=== PATIENT | male | born 1970 | race Caucasian/White ===

== ENCOUNTER 2021-03-09 09:17 | Emergency (ER) | payer OTHER ==
[~2021-03-09] VITALS: Ht 177.8 cm; Wt 63.5 kg
[2021-03-09 09:24] VITALS: BP 175/100
[2021-03-09] MEDS ORDERED: GABAPENTIN 300 MG CAP PO STA (09:33)
[2021-03-09] MEDS ORDERED: HYDROcodone/APAP 10/325 MG 1 TAB TAB PO STA (09:33)
[2021-03-09] MEDS ORDERED: ACYC-278 PO (09:35)
[2021-03-09] MEDS ORDERED: GABA-636 PO (09:35)
[2021-03-09] MEDS ORDERED: HYDR-5080 PO (09:35)
--- NOTE | 2021-03-09 09:40 | NUR ---
50 YEAR OLD MALE COMPLAINS OF RIGHT RIB PAIN X 7 DAYS. PT STATES THAT HIS DOCTOR ALSO TOLD HIM TO COME BECAUSE OF SHINGLES. PT AOX4, BREATHING EVEN AND UNLABORED, SKIN WARM AND DRY. BED IN LOWEST POSITION, LOCKED, BED RAIL UPX1. PMH - HTN, DM2 ALLERGIES - NKA
[2021-03-09 10:07] VITALS: BP 175/100
--- NOTE | 2021-03-09 10:08 | NUR ---
Patient discharged with v/s stable. Written and verbal after care instructions about shingles given and explained. Patient alert, oriented and verbalized understanding of instructions. Ambulatory with steady gait. All questions addressed prior to discharge. ID band removed. Patient advised to follow up with PMD. Rx of acyclovir, gabapentin, norco given. Patient educated on indication of medication including possible reaction and side effects. Opportunity to ask questions provided and answered.
== END 2021-03-09 10:08 | disposition home or self-care (01) ==
LOC: MED 09:17
DX: B02.9 Zoster without complications (principal)
CPT/HCPCS: 99282; 99283